=== PATIENT | male | born 1985 | race Caucasian/White ===

== ENCOUNTER 2019-02-26 12:48 | Emergency (ER) | payer BC ==
[2019-02-26 13:16] VITALS: BP 120/73
== END 2019-02-26 16:58 | disposition left against medical advice (07) ==
LOC: ED 12:48
DX: Z53.21 Procedure and treatment not carried out due to patient leaving prior to being seen by health care provider (principal)

== ENCOUNTER 2019-02-26 19:20 | Emergency (ER) | payer BC ==
[2019-02-26 21:43] VITALS: BP 140/81
--- NOTE | 2019-02-26 21:46 | ED Physician Documentation ---
History of Present Illness - Stated complaint Stated Complaint: DIZZY/NAUSEA - Chief complaint Chief Complaint: Neuro - History obtained from History obtained from: Patient - History of Present Illness Timing: Today Pain level max: 0 Pain level now: 0 - Additonal information Additional information: Patient states bent over today and felt dizzy today. felt nauseated as well. Worse with movement and better with rest. Recent ear infection. no trauma. Review of Systems Constitutional: denies: Fever, Chills Nose: denies: Rhinorrhea / runny nose, Congestion Throat: denies: Sore throat Cardiac: denies: Chest pain / pressure Respiratory: denies: Cough GI: denies: Abdominal Pain, Nausea, Vomiting, Diarrhea Skin: denies: Rash Musculoskeletal: denies: Neck pain, Back pain Neurologic: denies: Focal weakness, Numbness, Confused, Altered mental status, Headache, Head injury PD PAST MEDICAL HISTORY - Past Medical History Past Medical History: No - Present Medications Home Medications: Ambulatory Orders Medication Instructions Recorded Confirmed Meclizine HCl 25 mg PO Q6H PRN #20 tab.chew 02/26/19 predniSONE [Deltasone] 10 mg PO [id number] #42 tab 02/26/19 - Allergies Allergies/Adverse Reactions: Allergies Allergy/AdvReac Type Severity Reaction Status Date / Time No Known Drug Allergies Allergy Verified 02/26/19 19:48 - Living Situation Living Arrangement: reports: At home - Family History Family history: reports: Non contributory - Immunizations Immunizations are current?: Yes PD ED PE NORMAL - Vitals Vital signs reviewed: Yes - General General: Alert and oriented X 3, No acute distress, Well developed/nourished - HEENT HEENT: PERRL, Ears normal, Moist mucous membranes, Pharynx benign - Neck Neck: Supple, no meningeal sign - Cardiac Cardiac: RRR, Strong equal pulses - Respiratory Respiratory: No respiratory distress, Clear bilaterally - Abdomen Abdomen: Soft, Non tender, Non distended - Back Back: No spinal TTP - Derm Derm: Warm and dry - Extremities Extremities: No edema - Neuro Neuro: Alert and oriented X 3, 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 Horizontal nystagmus to the left. Positive head impulse test) - Psych Psych: Normal mood, Normal affect Results - Vitals Vitals: Oxygen O2 Source Room air PD MEDICAL DECISION MAKING - ED course Complexity details: considered differential, d/w patient ED course: 33-year-old male presents to the emergency department with vertigo. Possible BPPV, possible Mnire's or labyrinthitis or vestibular neuritis. He did have a recent infection in the left ear. Will trial on steroids and meclizine and see if this improves his symptoms. He is visiting from [place] and I will follow-up closely with an ear nose and throat doctor when he returns. Patient counseled regarding signs and symptoms for which I believe and urgent re- evaluation would be necessary. Patient with good understanding of and agreement to plan and is comfortable going home at this time This document was made in part using voice recognition software. While efforts are made to proofread this document, sound alike and grammatical errors may occur. No clinical signs of stroke or cerebellar infarct. Ambulating with a normal gait. Normal cerebellar tests Departure - Departure Disposition: 01 Home, Self Care Clinical Impression: Vertigo Condition: Good Instructions: ED Vertigo Unspecified Follow-Up: your,doctor in 1 week [Other] Prescriptions: Meclizine HCl 25 mg PO Q6H PRN #20 tab.chew PRN Reason: Vertigo predniSONE [Deltasone] 10 mg PO [id number] #42 tab Comments: You appear to have vertigo today. This may be caused by vestibular neuritis, Mnire's disease or benign paroxysmal positional vertigo. You need to follow- up with an ear nose and throat doctor when you return home to make sure that it is safe for you to work. Discharge Date/Time: 02/26/19 21:56
== END 2019-02-26 21:56 | disposition home or self-care (01) ==
LOC: ED 19:20
DX: R42 Dizziness and giddiness (principal); H55.09 Other forms of nystagmus
CPT/HCPCS: 99282; 99283

== ENCOUNTER 2020-07-05 22:45 | Emergency (ER) | payer BC ==
--- NOTE | 2020-07-05 22:46 | ED Physician Documentation ---
PD HPI MHE - Stated complaint Stated Complaint: MHE - History obtained from History obtained from: Patient - History of Present Illness Primary symptom: Anxiety Timing - onset: Today Pain level max: 0 Pain level now: 0 Contributing factors: Substance abuse - drugs Recently seen: Not recently seen - Additional information Additional information: c/o anxiety, insomnia, auditory and visual hallucinations x 2-3 days. Patient says he uses methamphetamines, most recent use was 2 days ago when he both injected and snorted methamphetamines. He says he started using methamphetamines 5-6 days ago after not using for a few months, which he says is not an unusual pattern for him (sobriety, relapse, and he says he typically can again have a period of abstaining with help of rehab facility). He says he was being helped by [facility] in [facility]. Patient says he has been there for two days but that tonight he was "kicked out" due to suspicion that patient was using methamphetamines while there; patient strongly denies using since 2 days ago. He does admit to drinking alcohol "on the way here" (per patient). He says he has been having auditory and visual hallucinations since this morning. He denies h/o AH/VH. He denies SI/HI Review of Systems Constitutional: denies: Fever Cardiac: reports: Reviewed and negative Respiratory: reports: Reviewed and negative GI: reports: Reviewed and negative Neurologic: reports: Reviewed and negative Psychiatric: reports: Hallucinations, Anxiety, Insomnia. denies: Depressed, Suicidal, Homicidal, Delusions PD PAST MEDICAL HISTORY - Past Medical History Past Medical History: No - Past Surgical History Past Surgical History: No - Present Medications Home Medications: Ambulatory Orders Medication Instructions Recorded Confirmed Meclizine HCl 25 mg PO Q6H PRN #20 tab.chew 02/26/19 predniSONE [Deltasone] 10 mg PO [id number] #42 tab 02/26/19 LORazepam [Ativan] 1 mg PO TID PRN #10 tablet 07/06/20 Olanzapine [Zyprexa] 5 mg PO BID PRN #10 tablet 07/06/20 - Allergies Allergies/Adverse Reactions: Allergies Allergy/AdvReac Type Severity Reaction Status Date / Time No Known Drug Allergies Allergy Verified 07/05/20 22:47 - Social History Does the pt drink ETOH?: Yes Does the pt have substance abuse?: Yes Substance Use and Type: Meth - Immunizations Immunizations are current?: Yes PD ED PE NORMAL - Vitals Vital signs reviewed: Yes - General General: Alert and oriented X 3, Well developed/nourished, Other (AAOx3, twitchy and verbose but polite and cooperative) - HEENT HEENT: PERRL, EOMI - Cardiac Cardiac: No murmur - Respiratory Respiratory: No respiratory distress, Clear bilaterally - Derm Derm: Normal color, Warm and dry - Neuro Neuro: Alert and oriented X 3 Eye Opening: Spontaneous Motor: Obeys Commands PD ED PE EXPANDED - Cardiac Cardiac: Tachy, Regular Rhythm - Psych Psych: Anxious, Other (no evidence of responding to internal stimuli (such as AH/VH) during this H+P) Results - Vitals Vitals: Vital Signs - 24 hr 07/05/20 07/05/20 07/06/20 22:47 23:11 06:54 Temperature 36.5 C 36.5 C Heart Rate 114 H 114 H 107 H Respiratory 16 16 18 Rate Blood Pressure 140/100 H 140/100 H 122/85 H O2 Saturation 98 98 98 Oxygen O2 Source Room air PD MEDICAL DECISION MAKING - ED course Complexity details: reviewed results, re-evaluated patient, considered differential, d/w patient ED course: On reevaluation, patient reported improvement after PO zyprexa and lorazepam and said he thinks he will be able to get some sleep now. He again is polite and conversant and does not appear to be responding to internal stimuli (such as AH/VH); he is still visibly twitchy and hyperkinetic, but he says he is comfortable with d/c home and will recontact [facility] in the morning (he says he was told to go back there at 11 AM, although he does not know if he will be allowed back). Departure - Departure Disposition: 01 Home, Self Care Clinical Impression: Substance abuse Condition: Good Instructions: ED Drug Abuse General Follow-Up: [facility] [Provider Group] Prescriptions: LORazepam [Ativan] 1 mg PO TID PRN #10 tablet PRN Reason: Anxiety Olanzapine [Zyprexa] 5 mg PO BID PRN #10 tablet PRN Reason: Agitation Discharge Date/Time: 07/06/20 06:59
[2020-07-05] MEDS ORDERED: LORazepam 0.5 MG TABLET PO STA (23:10)
[2020-07-05] MEDS ORDERED: OLANZapine ODT 5 MG TABLET TL STA (23:10)
[2020-07-06] MEDS ORDERED: OLANZapine ODT 5 MG TABLET TL STA (00:03)
[2020-07-06 06:55] VITALS: BP 122/85
== END 2020-07-06 06:59 | disposition home or self-care (01) ==
LOC: ED 22:45
DX: F15.10 Other stimulant abuse, uncomplicated (principal)
CPT/HCPCS: 99282; 99283; A9270

== ENCOUNTER 2021-01-22 15:50 | Outpatient (CLI) | payer BC | END 2021-01-22 15:51 | disposition home or self-care (01) | LOC: COV 15:50 | PROVIDERS: ATTEND Family Medicine | DX: U07.1 COVID-19 (principal) ==

== ENCOUNTER 2021-04-30 00:15 | Outpatient (CLI) | payer BC, MEDICAID | END 2021-04-30 00:16 | disposition critical access hospital (66) | LOC: EMS 00:15 | DX: F15.10 Other stimulant abuse, uncomplicated (principal) | CPT/HCPCS: A0425; A0427 ==

== ENCOUNTER 2021-04-30 00:38 | Emergency (ER) | payer BC, MEDICAID ==
[2021-04-30] MEDS ORDERED: LORazepam 2 MG/ML VIAL IVP STA ×5 (00:48→10:10)
--- NOTE | 2021-04-30 00:48 | ED Physician Documentation ---
PD HPI MHE - Stated complaint Stated Complaint: MHE PD PAST MEDICAL HISTORY - Past Surgical History Past Surgical History: No - Present Medications Home Medications: Ambulatory Orders Medication Instructions Recorded Confirmed Meclizine HCl 25 mg PO Q6H PRN #20 tab.chew 02/26/19 predniSONE [Deltasone] 10 mg PO [id number] #42 tab 02/26/19 LORazepam [Ativan] 1 mg PO TID PRN #10 tablet 07/06/20 OLANZapine [Zyprexa] 5 mg PO BID PRN #10 tablet 07/06/20 - Allergies Allergies/Adverse Reactions: Allergies Allergy/AdvReac Type Severity Reaction Status Date / Time No Known Drug Allergies Allergy Verified 07/05/20 22:47 - Social History Does the pt smoke?: Yes Smoking Status: Current every day smoker Does the pt drink ETOH?: Yes Does the pt have substance abuse?: Yes - Immunizations Immunizations are current?: Yes Results - Vitals Vitals: Oxygen O2 Source Room air
[2021-04-30] MEDS ORDERED: SODIUM CHLORIDE 0.9% 1,000 ML IV STA (01:18)
[2021-04-30 01:34] LABS: BASOPHILS # (AUTO) 0.1 10^3/uL (0.0-0.1); BASOPHILS % (AUTO) 0.8 %; EOSINOPHILS # (AUTO) 0.4 10^3/uL (0.0-0.7); EOSINOPHILS % (AUTO) 2.9 %; HCT - HEMATOCRIT 43.7 % (42.0-52.0); HGB - HEMOGLOBIN 15.5 g/dL (14.0-18.0); LYMPHOCYTES # (AUTO) 1.6 10^3/uL (1.5-3.5); LYMPHOCYTES % (AUTO) 12.2 %; MEAN CORPUSCULAR HEMOGLOBIN 29.4 pg (27.0-31.0); MEAN CORPUSCULAR HGB CONC 35.5 g/dL (32.0-36.0); MEAN CORPUSCULAR VOLUME 82.8 fL (80.0-94.0); MEAN PLATELET VOLUME 9.7 fL (7.4-11.4); MONOCYTES # (AUTO) 1.2 10^3/uL (0.0-1.0); MONOCYTES % (AUTO) 9.6 %; NEUTROPHILS # (AUTO) 9.5 10^3/uL (1.5-6.6); NEUTROPHILS % (AUTO) 74.1 %; PLT - PLATELET COUNT 297 10^3/uL (130-450); RED BLOOD COUNT 5.28 10^6/uL (4.70-6.10); RED CELL DISTRIBUTION WIDTH 12.3 % (12.0-15.0); WHITE BLOOD COUNT 12.8 x10^3/uL (4.8-10.8)
[2021-04-30 01:48] LABS: ACETAMINOPHEN < 10 ug/mL (10-30); ALBUMIN 4.5 g/dL (3.2-5.5); ALBUMIN/GLOBULIN RATIO 1.6 (1.0-2.2); ALKALINE PHOSPHATASE 73 IU/L (42-121); ALT ALANINE AMINOTRANSFERASE 30 IU/L (10-60); AST ASPARTATE AMINOTRANSFERASE 29 IU/L (10-42); BILIRUBIN,TOTAL 0.8 mg/dL (0.2-1.0); BUN - BLOOD UREA NITROGEN 31 mg/dL (6-20); CALCIUM 9.3 mg/dL (8.5-10.3); CARBON DIOXIDE - CO2 19 mmol/L (21-32); CHLORIDE 102 mmol/L (101-111); CK- CREATINE KINASE 511 IU/L (22-269); ETOH - ETHANOL < 5.0 mg/dL; GFR - MDRD 86 (>89); GLUCOSE 146 mg/dL (70-100); LIPASE 26 U/L (22-51); POTASSIUM 3.1 mmol/L (3.5-5.0); SALICYLATE < 6.0 mg/dL; SODIUM 136 mmol/L (135-145); TOTAL PROTEIN 7.4 g/dL (6.7-8.2)
[2021-04-30 09:48] LABS: MUDS CUTOFF CONCENTRATIONS CUTOFF CONC BELOW:
[2021-04-30 09:49] LABS: BILIRUBIN,URINE NEGATIVE (NEGATIVE); GLUCOSE, URINE (UA) NEGATIVE (NEGATIVE); KETONES,URINE (UA) 40 mg/dL (NEGATIVE); LEUKOCYTE ESTERASE, URINE NEGATIVE (NEGATIVE); NITRITE,URINE NEGATIVE (NEGATIVE); OCCULT BLOOD,URINE NEGATIVE (NEGATIVE); PH,URINE 5.5 PH (5.0-7.5); PROTEIN,URINE TRACE mg/dL (NEGATIVE); UROBILINOGEN,URINE 0.2 (NORMAL) E.U./dL (NORMAL)
[2021-04-30 09:52] LABS: CLARITY,URINE CLEAR (CLEAR)
--- NOTE | 2021-04-30 09:52 | ED Physician Documentation ---
PD HPI OVERDOSE - Stated complaint Stated Complaint: MHE - Chief complaint Chief Complaint: MHE - History obtained from History obtained from: Patient, EMS - History of Present Illness Timing - onset: Today (tonight) Subtance(s) ingested: Single, Illicit drug (methamphetamine) Associated symptoms: Agitated Contributing factors: Substance abuse Pain level max: 0 Pain level now: 0 Recently seen: Not recently seen - Additional information Additional information: BIBA. Patient says he uses amphetamines but tonight he used more than he has in the past and this rapidly resulted in agitation, severe anxiety, feeling of impending doom. He requests physical restraints because he is worried he might lose control and hurt someone although he says he has no intention nor thought of actually doing this, just worried what might happen if he no longer is in control of his thoughts and/or actions. He denies SI intent with this overdose. Review of Systems Constitutional: reports: Sweats Cardiac: reports: Palpitations. denies: Chest pain / pressure Respiratory: reports: Reviewed and negative GI: reports: Reviewed and negative Musculoskeletal: reports: Reviewed and negative Neurologic: denies: Generalized weakness, Seizure, Headache, LOC Psychiatric: reports: Anxiety PD PAST MEDICAL HISTORY - Past Medical History Past Medical History: No - Past Surgical History Past Surgical History: No - Present Medications Home Medications: Ambulatory Orders Medication Instructions Recorded Confirmed Meclizine HCl 25 mg PO Q6H PRN #20 tab.chew 02/26/19 predniSONE [Deltasone] 10 mg PO [id number] #42 tab 02/26/19 LORazepam [Ativan] 1 mg PO TID PRN #10 tablet 07/06/20 OLANZapine [Zyprexa] 5 mg PO BID PRN #10 tablet 07/06/20 - Allergies Allergies/Adverse Reactions: Allergies Allergy/AdvReac Type Severity Reaction Status Date / Time No Known Drug Allergies Allergy Verified 04/30/21 20:44 - Social History Does the pt smoke?: Yes Smoking Status: Current every day smoker Does the pt drink ETOH?: Yes Does the pt have substance abuse?: Yes Substance Use and Type: Meth - Immunizations Immunizations are current?: No PD ED PE NORMAL - Vitals Vital signs reviewed: Yes - General General: Alert and oriented X 3, Well developed/nourished, Other (hyperkinetic, appears very anxious and apprehensive) - HEENT HEENT: PERRL - Cardiac Cardiac: No murmur - Respiratory Respiratory: No respiratory distress, Clear bilaterally - Abdomen Abdomen: Soft, Non tender - Derm Derm: Normal color, Warm and dry - Neuro Neuro: Alert and oriented X 3, Normal speech Eye Opening: Spontaneous Motor: Obeys Commands Verbal: Oriented GCS Score: 15 PD ED PE EXPANDED - Cardiac Cardiac: Tachy, Regular Rhythm - Psych Psych: Anxious, Agitated. No: Combative Results - Vitals Vitals: Vital Signs - 24 hr 04/30/21 04/30/21 04/30/21 00:45 01:50 06:00 Temperature 35.2 C L Heart Rate 145 H 130 H 93 Respiratory 21 27 H 18 Rate Blood Pressure 144/120 H 149/101 H 107/69 O2 Saturation 99 98 98 04/30/21 04/30/21 04/30/21 07:32 09:00 17:20 Temperature 37.0 C Heart Rate 95 91 110 H Respiratory 18 17 22 Rate Blood Pressure 136/68 H 143/80 H 128/70 O2 Saturation 99 98 100 Oxygen O2 Source Room air - Labs Labs: Laboratory Tests 04/30/21 04/30/21 04/30/21 01:28 01:28 01:28 WBC 12.8 H RBC 5.28 Hgb 15.5 Hct 43.7 MCV 82.8 MCH 29.4 MCHC 35.5 RDW 12.3 Plt Count 297 MPV 9.7 Neut # (Auto) 9.5 H Lymph # (Auto) 1.6 Stearns # (Auto) 1.2 H Eos # (Auto) 0.4 Baso # (Auto) 0.1 Absolute Nucleated RBC 0.00 Nucleated RBC % 0.0 Sodium 136 Potassium 3.1 L Chloride 102 Carbon Dioxide 19 L Anion Gap 15.0 H BUN 31 H Creatinine 1.0 Estimated GFR (MDRD) 86 L Glucose 146 H Calcium 9.3 Total Bilirubin 0.8 AST 29 ALT 30 Alkaline Phosphatase 73 Total Creatine Kinase 511 H CK-MB (CK-2) 11.2 H Total Protein 7.4 Albumin 4.5 Globulin 2.9 Albumin/Globulin Ratio 1.6 Lipase 26 TSH Urine Color Urine Clarity Urine pH Ur Specific [place] Urine Protein Urine Glucose (UA) Urine Ketones Urine Occult Blood Urine Nitrite Urine Bilirubin Urine Urobilinogen Ur Leukocyte Esterase Ur Microscopic Review Urine Culture Comments Salicylates < 6.0 Urine Opiates Screen Ur Oxycodone Screen Urine Methadone Screen Ur Propoxyphene Screen Acetaminophen < 10 L Ur Barbiturates Screen Ur Tricyclics Screen Ur Phencyclidine Scrn Ur Amphetamine Screen U Methamphetamines Scrn U Benzodiazepines Scrn Urine Cocaine Screen U Cannabinoids Screen Ethyl Alcohol < 5.0 04/30/21 04/30/21 01:28 09:43 WBC RBC Hgb Hct MCV MCH MCHC RDW Plt Count MPV Neut # (Auto) Lymph # (Auto) Stearns # (Auto) Eos # (Auto) Baso # (Auto) Absolute Nucleated RBC Nucleated RBC % Sodium Potassium Chloride Carbon Dioxide Anion Gap BUN Creatinine Estimated GFR (MDRD) Glucose Calcium Total Bilirubin AST ALT Alkaline Phosphatase Total Creatine Kinase CK-MB (CK-2) Total Protein Albumin Globulin Albumin/Globulin Ratio Lipase TSH 0.62 Urine Color DARK YELLOW Urine Clarity CLEAR Urine pH 5.5 Ur Specific [place] >=1.030 H Urine Protein TRACE Urine Glucose (UA) NEGATIVE Urine Ketones 40 H Urine Occult Blood NEGATIVE Urine Nitrite NEGATIVE Urine Bilirubin NEGATIVE Urine Urobilinogen 0.2 (NORMAL) Ur Leukocyte Esterase NEGATIVE Ur Microscopic Review NOT INDICATED Urine Culture Comments NOT INDICATED Salicylates Urine Opiates Screen NEGATIVE Ur Oxycodone Screen NEGATIVE Urine Methadone Screen NEGATIVE Ur Propoxyphene Screen NEGATIVE Acetaminophen Ur Barbiturates Screen NEGATIVE Ur Tricyclics Screen NEGATIVE Ur Phencyclidine Scrn NEGATIVE Ur Amphetamine Screen POSITIVE H U Methamphetamines Scrn POSITIVE H U Benzodiazepines Scrn POSITIVE H Urine Cocaine Screen NEGATIVE U Cannabinoids Screen NEGATIVE Ethyl Alcohol PD MEDICAL DECISION MAKING - ED course Complexity details: reviewed results, re-evaluated patient, considered differential, d/w patient ED course: presents with severe agitation, anxiety, and tachycardia after using more methamphetamines earlier tonight than he has used in the past. He initially is requesting physical restraints for fear of losing control of his thoughts and actions, but he is understanding when I explain that IV medications (specifically benzodiazepine such as lorazepam) should control his symptoms rather than resorting to physical restraints. He is given repeated doses of 2mg IV lorazepam to a total of 8 mg. The first three doses (total of 6 mg lorazepam) had little noticeable effect, but after the fourth dose his hyperkinetic movements and agitation resolved and he then fell asleep for several hours. For the remainder of my shift he was very drowsy when woken, falling asleep mid- sentence. Care of patient turned over to Dr. Torrez at end of my shift. Disposition pending which will depend on reevaluation when he is again awake ,alert, and conversant. Departure - Departure Disposition: Home, Self Care Clinical Impression: Methamphetamine abuse Instructions: Abuse Meth Abuse and Addiction, ED Drug Abuse General Follow-Up: [facility] [Provider Group] Comments: Follow up with treatment as planned Discharge Date/Time: 04/30/21 15:00
[2021-04-30 10:07] LABS: AMPHETAMINE SCREEN,URINE POSITIVE (NEGATIVE); BARBITURATE SCREEN,UR NEGATIVE (NEGATIVE); BENZODIAZEPINES SCREEN, URINE POSITIVE (NEGATIVE); COCAINE SCREEN URINE NEGATIVE (NEGATIVE); METHADONE SCREEN, URINE NEGATIVE (NEGATIVE); METHAMPHETAMINES SCREEN, URINE POSITIVE (NEGATIVE); OPIATE SCREEN, URINE NEGATIVE (NEGATIVE); OXYCODONE SCREEN, URINE NEGATIVE (NEGATIVE); PROPOXYPHENE SCREEN, URINE NEGATIVE (NEGATIVE); THC CANNABINOID SCREEN, URINE NEGATIVE (NEGATIVE); TRICYCLIC ANTIDEPRESSANT,URINE NEGATIVE (NEGATIVE)
--- NOTE | 2021-04-30 14:14 | ED Physician Documentation ---
ED Addendum - Addendum Addendum: 04/30/21 14:13 35-year-old male who apparently took too much methamphetamine yesterday had dystonic reaction to this and was very akathetic overnight required high doses of Ativan he has now metabolized and is feeling improved he has a friend who is going to pick him up and take him to a treatment center. He was evaluated by our school social worker who also evaluated his mental health aspects of this case. He is discharged to home in the care of his friend with anticipated travel to [facility].
[2021-04-30 17:23] VITALS: BP 128/70
== END 2021-04-30 15:00 | disposition home or self-care (01) ==
LOC: EDUNIT# → ED 00:38
DX: F15.180 Other stimulant abuse with stimulant-induced anxiety disorder (principal); R45.1 Restlessness and agitation; T43.621A Poisoning by amphetamines, accidental (unintentional), initial encounter; G24.09 Other drug induced dystonia; G25.71 Drug induced akathisia; R00.0 Tachycardia, unspecified; F17.200 Nicotine dependence, unspecified, uncomplicated
CPT/HCPCS: 36415; 80053; 80306; 80307; 80320; 80329; 81001; 81003; 82550; 82553; 83690; 84443; 85025; 87086; 96374; 96376; 99284

== ENCOUNTER 2021-04-30 20:42 | Emergency (ER) | payer MEDICAID ==
[2021-04-30 20:48] VITALS: BP 108/88
[2021-04-30 20:57] LABS: MUDS CUTOFF CONCENTRATIONS CUTOFF CONC BELOW:
[2021-04-30 20:58] LABS: BASOPHILS # (AUTO) 0.1 10^3/uL (0.0-0.1); BASOPHILS % (AUTO) 0.8 %; EOSINOPHILS # (AUTO) 0.5 10^3/uL (0.0-0.7); EOSINOPHILS % (AUTO) 4.9 %; HCT - HEMATOCRIT 45.9 % (42.0-52.0); HGB - HEMOGLOBIN 15.6 g/dL (14.0-18.0); LYMPHOCYTES # (AUTO) 2.1 10^3/uL (1.5-3.5); LYMPHOCYTES % (AUTO) 19.5 %; MEAN CORPUSCULAR HEMOGLOBIN 28.8 pg (27.0-31.0); MEAN CORPUSCULAR VOLUME 84.7 fL (80.0-94.0); MEAN PLATELET VOLUME 9.4 fL (7.4-11.4); MONOCYTES # (AUTO) 1.2 10^3/uL (0.0-1.0); MONOCYTES % (AUTO) 10.8 %; NEUTROPHILS # (AUTO) 6.8 10^3/uL (1.5-6.6); NEUTROPHILS % (AUTO) 63.7 %; PLT - PLATELET COUNT 311 10^3/uL (130-450); RED BLOOD COUNT 5.42 10^6/uL (4.70-6.10); RED CELL DISTRIBUTION WIDTH 12.7 % (12.0-15.0); WHITE BLOOD COUNT 10.6 x10^3/uL (4.8-10.8)
[2021-04-30 21:02] LABS: BILIRUBIN,URINE NEGATIVE (NEGATIVE); GLUCOSE, URINE (UA) NEGATIVE (NEGATIVE); KETONES,URINE (UA) 15 mg/dL (NEGATIVE); LEUKOCYTE ESTERASE, URINE NEGATIVE (NEGATIVE); NITRITE,URINE NEGATIVE (NEGATIVE); OCCULT BLOOD,URINE TRACE-INTA (NEGATIVE); PH,URINE 5.5 PH (5.0-7.5); PROTEIN,URINE NEGATIVE (NEGATIVE); UROBILINOGEN,URINE 0.2 (NORMAL) E.U./dL (NORMAL)
[2021-04-30 21:05] LABS: CLARITY,URINE HAZY (CLEAR)
--- NOTE | 2021-04-30 21:08 | ED Physician Documentation ---
History of Present Illness - Stated complaint Stated Complaint: DETOX - Chief complaint Chief Complaint: MHE - History obtained from History obtained from: Patient - Additonal information Additional information: Patient returns emergency department for chief complaint of needing clearance labs for detox. Patient was seen here last night for methamphetamine intoxication and was treated with sedation overnight until the meth wore off. At that time, he saw social work, which was this morning, and was accepted to a detox facility. The patient's friend was supposed to drive him straight there, but the patient did not show up till tonight. Because he was outside of the window for showing up, he was sent back here to get repeat clearance labs and paperwork. He says they still have a bed for him there. Patient denies complaints at this time. He states he feels a lot better than he did last night, because he is no longer high. He denies any nausea or vomiting. No chest pain or shortness of breath. No headache or neurologic symptoms. No other complaints. Review of Systems Ten Systems: 10 systems reviewed and negative Constitutional: reports: Reviewed and negative Eyes: reports: Reviewed and negative Ears: reports: Reviewed and negative Nose: reports: Reviewed and negative Throat: reports: Reviewed and negative Cardiac: reports: Reviewed and negative Respiratory: reports: Reviewed and negative GI: reports: Reviewed and negative : reports: Reviewed and negative Skin: reports: Reviewed and negative Musculoskeletal: reports: Reviewed and negative Neurologic: reports: Reviewed and negative Psychiatric: reports: Reviewed and negative Endocrine: reports: Reviewed and negative Immunocompromised: reports: Reviewed and negative PD PAST MEDICAL HISTORY - Past Surgical History Past Surgical History: No - Present Medications Home Medications: Ambulatory Orders Medication Instructions Recorded Confirmed Meclizine HCl 25 mg PO Q6H PRN #20 tab.chew 02/26/19 predniSONE [Deltasone] 10 mg PO [id number] #42 tab 02/26/19 LORazepam [Ativan] 1 mg PO TID PRN #10 tablet 07/06/20 OLANZapine [Zyprexa] 5 mg PO BID PRN #10 tablet 07/06/20 - Allergies Allergies/Adverse Reactions: Allergies Allergy/AdvReac Type Severity Reaction Status Date / Time No Known Drug Allergies Allergy Verified 04/30/21 20:44 - Social History Does the pt smoke?: Yes Smoking Status: Current every day smoker Does the pt drink ETOH?: Yes Does the pt have substance abuse?: Yes - Immunizations Immunizations are current?: No PD ED PE NORMAL - Vitals Vital signs reviewed: Yes - General General: Alert and oriented X 3, No acute distress, Well developed/nourished - HEENT HEENT: Atraumatic, PERRL, EOMI, Moist mucous membranes - Neck Neck: Supple, no meningeal sign - Cardiac Cardiac: RRR, No murmur, Strong equal pulses - Respiratory Respiratory: No respiratory distress, Clear bilaterally - Abdomen Abdomen: Soft, Non tender, Non distended - Derm Derm: Normal color, Warm and dry, No rash - Extremities Extremities: No deformity, No edema, No calf tenderness / cord - Neuro Neuro: Alert and oriented X 3, 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, No motor deficit, No sensory deficit, Normal speech, Other (Patient is fidgeting somewhat but otherwise, is calm and cooperative.) - Psych Psych: Normal mood, Normal affect Results - Vitals Vitals: Vital Signs - 24 hr 04/30/21 20:44 Temperature 36.6 C Heart Rate 100 Respiratory 16 Rate Blood Pressure 108/88 H O2 Saturation 94 Oxygen O2 Source Room air - Labs Labs: Laboratory Tests 04/30/21 04/30/21 04/30/21 20:48 20:53 20:53 WBC 10.6 RBC 5.42 Hgb 15.6 Hct 45.9 MCV 84.7 MCH 28.8 MCHC 34.0 RDW 12.7 Plt Count 311 MPV 9.4 Neut # (Auto) 6.8 H Lymph # (Auto) 2.1 [place] # (Auto) 1.2 H Eos # (Auto) 0.5 Baso # (Auto) 0.1 Absolute Nucleated RBC 0.00 Nucleated RBC % 0.0 Sodium 142 Potassium 3.4 L Chloride 102 Carbon Dioxide 29 Anion Gap 11.0 BUN 23 H Creatinine 0.9 Estimated GFR (MDRD) 97 Glucose 121 H Calcium 9.7 Total Bilirubin 0.6 AST 26 ALT 30 Alkaline Phosphatase 73 Total Protein 7.9 Albumin 4.7 Globulin 3.2 Albumin/Globulin Ratio 1.5 Lipase 28 Urine Color YELLOW Urine Clarity HAZY Urine pH 5.5 Ur Specific [place] >=1.030 H Urine Protein NEGATIVE Urine Glucose (UA) NEGATIVE Urine Ketones 15 H Urine Occult Blood TRACE-INTA Urine Nitrite NEGATIVE Urine Bilirubin NEGATIVE Urine Urobilinogen 0.2 (NORMAL) Ur Leukocyte Esterase NEGATIVE Urine RBC 0-5 Urine WBC 0-3 Ur Squamous Epith Cells RARE Squamous Amorphous Sediment Moderate Urine Bacteria Rare Ur Microscopic Review INDICATED Urine Culture Comments NOT INDICATED Salicylates < 6.0 Urine Opiates Screen NEGATIVE Ur Oxycodone Screen NEGATIVE Urine Methadone Screen NEGATIVE Ur Propoxyphene Screen NEGATIVE Acetaminophen < 10 L Ur Barbiturates Screen NEGATIVE Ur Tricyclics Screen NEGATIVE Ur Phencyclidine Scrn NEGATIVE Ur Amphetamine Screen POSITIVE H U Methamphetamines Scrn POSITIVE H U Benzodiazepines Scrn POSITIVE H Urine Cocaine Screen NEGATIVE U Cannabinoids Screen NEGATIVE Ethyl Alcohol < 5.0 PD MEDICAL DECISION MAKING - ED course Complexity details: reviewed results, re-evaluated patient, considered differential, d/w patient ED course: The patient was worked up with clearance labs. He was coherent, calm, and cooperative and I felt he was clear for detox. Departure - Departure Disposition: 01 Home, Self Care Clinical Impression: Substance abuse Condition: Stable Instructions: ED Drug Abuse General Comments: Your labs and toxicology screens have been performed. You were medically clear to go to detox. Please go straight there upon discharge from here. Do not delay, or you may not be admitted to the facility.
[2021-04-30 21:12] LABS: BACTERIA,URINE Rare /HPF (None Seen); RBC,URINE 0-5 /HPF (0-5); SQUAMOUS EPITHELIAL CELL,UR RARE Squamous (<= Few); WBC,URINE 0-3 /HPF (0-3)
[2021-04-30 21:13] LABS: AMORPHOUS SEDIMENT,UR Moderate /LPF; AMPHETAMINE SCREEN,URINE POSITIVE (NEGATIVE); BARBITURATE SCREEN,UR NEGATIVE (NEGATIVE); BENZODIAZEPINES SCREEN, URINE POSITIVE (NEGATIVE); COCAINE SCREEN URINE NEGATIVE (NEGATIVE); METHADONE SCREEN, URINE NEGATIVE (NEGATIVE); METHAMPHETAMINES SCREEN, URINE POSITIVE (NEGATIVE); OPIATE SCREEN, URINE NEGATIVE (NEGATIVE); OXYCODONE SCREEN, URINE NEGATIVE (NEGATIVE); PROPOXYPHENE SCREEN, URINE NEGATIVE (NEGATIVE); THC CANNABINOID SCREEN, URINE NEGATIVE (NEGATIVE); TRICYCLIC ANTIDEPRESSANT,URINE NEGATIVE (NEGATIVE)
[2021-04-30 21:20] LABS: ACETAMINOPHEN < 10 ug/mL (10-30); ALBUMIN 4.7 g/dL (3.2-5.5); ALBUMIN/GLOBULIN RATIO 1.5 (1.0-2.2); ALKALINE PHOSPHATASE 73 IU/L (42-121); ALT ALANINE AMINOTRANSFERASE 30 IU/L (10-60); AST ASPARTATE AMINOTRANSFERASE 26 IU/L (10-42); BILIRUBIN,TOTAL 0.6 mg/dL (0.2-1.0); BUN - BLOOD UREA NITROGEN 23 mg/dL (6-20); CALCIUM 9.7 mg/dL (8.5-10.3); CARBON DIOXIDE - CO2 29 mmol/L (21-32); CHLORIDE 102 mmol/L (101-111); CREATININE 0.9 mg/dL (0.6-1.2); ETOH - ETHANOL < 5.0 mg/dL; GFR - MDRD 97 (>89); GLUCOSE 121 mg/dL (70-100); LIPASE 28 U/L (22-51); POTASSIUM 3.4 mmol/L (3.5-5.0); SALICYLATE < 6.0 mg/dL; SODIUM 142 mmol/L (135-145); TOTAL PROTEIN 7.9 g/dL (6.7-8.2)
== END 2021-04-30 21:30 | disposition home or self-care (01) ==
LOC: ED 20:42
DX: F15.180 Other stimulant abuse with stimulant-induced anxiety disorder (principal); R45.1 Restlessness and agitation; T43.621A Poisoning by amphetamines, accidental (unintentional), initial encounter; G24.09 Other drug induced dystonia; G25.71 Drug induced akathisia; R00.0 Tachycardia, unspecified; F17.200 Nicotine dependence, unspecified, uncomplicated
CPT/HCPCS: 36415; 80053; 80306; 80307; 80320; 80329; 81001; 81003; 82550; 82553; 83690; 84443; 85025; 96374; 96376; 99283; 99284; J2060; 87086